=== PATIENT | female | born 1975 | race Caucasian/White ===

== ENCOUNTER 2021-06-22 20:52 | Emergency (ER) | payer OTHER ==
[2021-06-22] MEDS ORDERED: IBUPROFEN600 MG PO (22:16)
== END 2021-06-22 22:24 | disposition home or self-care (01) ==
LOC: ER1 20:52
DX: S93.402A Sprain of unspecified ligament of left ankle, initial encounter (principal); X50.1XXA Overexertion from prolonged static or awkward postures, initial encounter
CPT/HCPCS: 73610; 99283